=== PATIENT | female | born 1995 | race Native Hawaiian/Other Pacific Islander ===

== ENCOUNTER 2018-03-23 11:33 | Emergency (ER) | payer BC ==
[~2018-03-23] VITALS: Ht 157.5 cm; Wt 83.9 kg
[2018-03-23 11:40] VITALS: TEMP 97.7
[2018-03-23 12:58] LABS: PLATELET COUNT 302 K/uL (152-353)
[2018-03-23 13:12] LABS: POTASSIUM 4.1 mmol/L (3.6-5.2); SODIUM 140 mmol/L (136-145)
[2018-03-23 14:48] VITALS: BP 122/74
== END 2018-03-23 14:48 | disposition home or self-care (01) ==
LOC: ED 11:33
PROVIDERS: Family Medicine
DX: R07.89 Other chest pain (principal); K21.9 Gastro-esophageal reflux disease without esophagitis
CPT/HCPCS: 36415; 80053; 82550; 84484; 85027; 93005; 99283